=== PATIENT | female | born 1935 | race Caucasian/White ===

== ENCOUNTER 2020-10-22 10:13 | Observation (INO) ==
--- NOTE | 2020-10-22 13:20 | RAD ---
HISTORYCHEST PAINSTUDYCHEST, 1 VIEWCOMPARISONNoneFINDINGSThe lungs are clear. No pneumothorax or significant effusion.Heart size is normal. Vascular calcifications are present compatible with atherosclerosis.Mild scoliosis. Degenerative changes in both shoulders.EKG leads are noted.IMPRESSION1. No significant abnormalityElectronically signed by: Toan Hawkins (Oct 22, 2020 13:18:14)
[2020-10-22 13:32] LABS: BASOPHILS # (AUTO) 0.1 X10^3/uL (0.0-0.1); BASOPHILS % (AUTO) 0.9 % (0.2-1.0); EOSINOPHILS # (AUTO) 0.2 x10^3/uL (0.0-0.2); EOSINOPHILS % (AUTO) 3.1 % (0.9-2.9); HEMATOCRIT 39.9 % (36.0-47.0); LYMPHOCYTES # (AUTO) 1.5 X10^3/uL (1.3-2.9); LYMPHOCYTES % (AUTO) 20.9 % (21.0-51.0); MEAN CORPUSCULAR HEMOGLOBIN 29.6 pg (27.0-34.0); MEAN CORPUSCULAR HGB CONC 32.6 g/dL (33.0-35.0); MEAN CORPUSCULAR VOLUME 90.7 fL (80.0-100.0); MEAN PLATELET VOLUME 7.2 fL (7.4-11.0); MONOCYTES # (AUTO) 0.8 x10^3/uL (0.3-0.8); MONOCYTES % (AUTO) 11.6 % (0.0-13.0); NEUTROPHILS # (AUTO) 4.4 x10^3/uL (2.2-4.8); NEUTROPHILS % (AUTO) 63.5 % (42.0-75.0); PLATELET COUNT 336 X10^3/uL (150.0-450.0); RED CELL DISTRIBUTION WIDTH 14.7 % (11.6-16.5)
[2020-10-22 14:00] LABS: ALANINE AMINOTRANSFERASE 21 Units/L (12-78); ALBUMIN 3.3 g/dL (3.4-5.0); ALKALINE PHOSPHATASE 125 Units/L (46-116); ASPARTATE AMINO TRANSFERASE 26 Units/L (15-37); BLOOD UREA NITROGEN 9 mg/dL (7-18); CALCIUM 8.5 mg/dL (8.5-10.1); CARBON DIOXIDE 26.4 mmol/L (21-32); CHLORIDE 102 mmol/L (98-107); CKMB % 2.9 % (<4); COR CA(FOR HYPOALB) 9.1 mg/dL (8.5-10.1); CREATINE KINASE 34 Units/L (26-192); CREATINE KINASE MB < 1.0 ng/mL (0-4.0); CREATININE 0.61 mg/dL (0.55-1.02); SODIUM 135 mmol/L (136-145); TOTAL PROTEIN 6.7 g/dL (6.4-8.2); TROPONIN I < 0.02 ng/mL (0-1.5); eGFR NON BLACK RACES > 60 (>60)
[2020-10-22 14:13] VITALS: BMI 25.0
[2020-10-22 14:35] LABS: BILIRUBIN,URINE NEGATIVE (NEGATIVE); BLOOD/HEMOGLOBIN,URINE NEGATIVE (NEGATIVE); GLUCOSE, URINE NEGATIVE (NEGATIVE); KETONES,URINE NEGATIVE (NEGATIVE); LEUKOCYTE ESTERASE ,URINE NEGATIVE (NEGATIVE); NITRITES,URINE NEGATIVE (NEGATIVE); PH,URINE 6.5 (5.0 - 8.0); PROTEIN,URINE 1+ (NEGATIVE); UROBILINOGEN,URINE NORMAL (NORMAL)
[2020-10-22] MEDS: NS 1000 ML 1,000 ML IV SCH (14:39)
[2020-10-22 14:45] LABS: APPEARANCE,URINE CLEAR (CLEAR); COLOR,URINE YELLOW (YELLOW)
[2020-10-22 14:47] LABS: BACTERIA,URINE TRACE /HPF (NEGATIVE); RBC,URINE NONE SEEN /HPF (0-3); SQUAMOUS EPITHELIAL CELL,UR RARE /HPF (NEGATIVE)
[2020-10-22 17:29] LABS: CKMB % 2.6 % (<4); CREATINE KINASE 38 Units/L (26-192); CREATINE KINASE MB < 1.0 ng/mL (0-4.0); TROPONIN I < 0.02 ng/mL (0-1.5)
[2020-10-22] MEDS: NORCO 5/325 MG TAB PO PRN (19:00)
--- NOTE | 2020-10-22 19:19 | DR.H&P ---
H&P - History & Physical for Day of: H&P Date: 10/22/20 - Chief Complaint Chief Complaint: CLEMONS, DIAPHORESIS - History of Present Illness History of Present Illness: PT IS [id number] DIRECT ADMIT WITH CO MULTIPLE EPISODES OF DIAPHORESIS WITH HX OF CAD, PCI X5. PT REPORTS SHE HAS HAD CLEMONS. PT CURRENTLY ON PO ANTIBIOTIC THERAPY FOR RLE WOUND FOLLOWED BY DR PACKER. PT DENIES ANY FEVER OR RECENT CCC. PT DENIES ANY KNOWN COVID EXPOSURE. PT ADMITTED FOR TREATMENT AND EVALUATION OF ACUTE ILLNESS, RO AMI. - Past Medical History Past Medical History: Arthritis, Coronary Artery Disease, GERD, Hypertension - Past Surgical History Surgical History: Angioplasty/Stents, Cholecystectomy, Hysterectomy, Ortho Surgery, Other - Social History Does patient currently use any type of tobacco product: No Have you used tobacco products in the last 12 months: No Type of Tobacco Use: None Does any household member use tobacco: No Alcohol Use: Occasionally Drug Use: None - Medications Home Medications: No Known Drug Allergies [NKDA] Allergy (Verified 10/22/20 13:23) - Review of Systems Constitutional: Sweats, Weakness Eyes: No Symptoms Reported ENT: No Symptoms Reported Respiratory: SOB with Excertion Cardiovascular: Edema Gastrointestinal: No Symptoms Reported Genitourinary: No Symptoms Reported Musculoskeletal: No Symptoms Reported Skin: Wound Neurological: Other (OCCASSIONAL DIZZY SPELLS) - Physical Exam Vital Signs: Temperature 98.6 F Pulse Rate [Left Radial] 86 Respiratory Rate 17 Blood Pressure [Left Arm] 152/68 O2 Sat by Pulse Oximetry 96 Oriented: Normal Eyes: Normal Ear: Normal Nose: Normal Throat: Normal Cardiovascular: Normal, Edema : Normal Auscultation: Bowel Sounds: Normal Palpation: Normal Tenderness: Normal Skin: Decreased Turgur, Wound (RLE) Musculoskeletal: Right, Leg, Tender Psychiatric: Anxiety Affect: Anxious Speech Pattern: Clear, Appropriate - Assessment/Plan (1) Chest pain Status: Acute Plan: ADMIT, SERIAL CE AND EKG. CXR ON ADMISSION, TELEMETRY. STRICT I&OS. PPI THERAPY, VERIFY HOME MEDICATION. BP CONTROL (2) CLEMONS (dyspnea on exertion) Status: Acute (3) CAD (coronary artery disease) Status: Acute (4) Diaphoresis Status: Acute (5) Hypertension Status: Acute - Allergies Allergies/Adverse Reactions: Allergies Allergy/AdvReac Type Severity Reaction Status Date / Time No Known Drug Allergies Allergy Verified 10/22/20 13:23 [NKDA]
[2020-10-22 19:56] LABS: FREE T4 (FREE THYROXINE) 1.08 ng/dL (0.76-1.46); TSH (3RD GENERATION) 2.141 uIU/mL (0.358-3.74)
[2020-10-22 21:24] LABS: CKMB % 2.8 % (<4); CREATINE KINASE 36 Units/L (26-192); CREATINE KINASE MB < 1.0 ng/mL (0-4.0); TROPONIN I < 0.02 ng/mL (0-1.5)
[2020-10-22] MEDS: TOPROL XL PO SCH (21:58)
[2020-10-22] MEDS: NORVASC TAB 5 MG PO SCH (21:58)
[2020-10-22] MEDS: PROTONIX INJ 40 MG VIAL IVP SCH (22:01)
[2020-10-23] MEDS ORDERED: VOLTAREN 1 % GEL MULTI DOSE TUBE TOP PRN (00:58)
[2020-10-23] MEDS: NS 1000 ML 1,000 ML IV SCH ×2 (03:50→18:22)
[2020-10-23 05:45] LABS: BASOPHILS % (AUTO) 0.6 % (0.2-1.0); EOSINOPHILS # (AUTO) 0.4 x10^3/uL (0.0-0.2); HEMATOCRIT 36.8 % (36.0-47.0); HEMOGLOBIN 12.1 g/dL (12.0-16.0); LYMPHOCYTES # (AUTO) 1.6 X10^3/uL (1.3-2.9); MEAN CORPUSCULAR HEMOGLOBIN 29.8 pg (27.0-34.0); MEAN CORPUSCULAR VOLUME 90.4 fL (80.0-100.0); MEAN PLATELET VOLUME 7.5 fL (7.4-11.0); MONOCYTES # (AUTO) 0.9 x10^3/uL (0.3-0.8); MONOCYTES % (AUTO) 14.4 % (0.0-13.0); NEUTROPHILS # (AUTO) 3.5 x10^3/uL (2.2-4.8); PLATELET COUNT 324 X10^3/uL (150.0-450.0); RED BLOOD COUNT 4.07 X10^6/uL (3.5-5.4); RED CELL DISTRIBUTION WIDTH 14.8 % (11.6-16.5); WHITE BLOOD COUNT 6.4 X10^3/uL (3.6-10.0)
[2020-10-23 08:50] LABS: ALANINE AMINOTRANSFERASE 21 Units/L (12-78); ALBUMIN 2.8 g/dL (3.4-5.0); ALKALINE PHOSPHATASE 106 Units/L (46-116); ASPARTATE AMINO TRANSFERASE 24 Units/L (15-37); BLOOD UREA NITROGEN 7 mg/dL (7-18); CALCIUM 8.1 mg/dL (8.5-10.1); CARBON DIOXIDE 26.2 mmol/L (21-32); CHLORIDE 103 mmol/L (98-107); CHOL/HDL RATIO 2.1 (0.0-5.0); CHOLESTEROL 154 mg/dL (0-200); COR CA(FOR HYPOALB) 9.1 mg/dL (8.5-10.1); CREATININE 0.48 mg/dL (0.55-1.02); HDL CHOLESTEROL 75 mg/dL (40-60); SODIUM 136 mmol/L (136-145); TOTAL PROTEIN 5.9 g/dL (6.4-8.2); TRIGLYCERIDES 51 mg/dL (0-150); eGFR NON BLACK RACES > 60 (>60)
[2020-10-23] MEDS: TOPROL XL PO SCH (09:16)
[2020-10-23] MEDS: PROTONIX INJ 40 MG VIAL IVP SCH (09:16)
[2020-10-23] MEDS: NORVASC TAB 5 MG PO SCH (09:16)
[2020-10-23] MEDS ORDERED: MORPHINE SULFATE INJ 2 MG INJ IVP PRN (10:37)
[2020-10-23] MEDS ORDERED: ZOFRAN INJ 4 MG VIAL IVP PRN (10:38)
[2020-10-23] MEDS: NORCO 5/325 MG TAB PO PRN (14:25)
[2020-10-23 17:17] VITALS: BP 115/66
== END 2020-10-23 18:55 | disposition short-term general hospital (02) ==
LOC: MED/SURG
PROVIDERS: ADMIT Internal Medicine; ATTEND Internal Medicine
DX: I25.10 Atherosclerotic heart disease of native coronary artery without angina pectoris; Z20.822 Contact with and (suspected) exposure to COVID-19; R61 Generalized hyperhidrosis; R07.89 Other chest pain; I10 Essential (primary) hypertension; M19.90 Unspecified osteoarthritis, unspecified site; R94.31 Abnormal electrocardiogram [ECG] [EKG]; K21.9 Gastro-esophageal reflux disease without esophagitis